=== PATIENT | male | born 1965 | race Caucasian/White ===

== ENCOUNTER 2025-03-23 04:39 | Emergency (ER) | payer BC ==
[~2025-03-23] VITALS: Ht 175.3 cm; Wt 92.3 kg
[2025-03-23 04:51] VITALS: O2SAT 99
[2025-03-23] MEDS: TETANUS, DIPHTHERIA, PERTUSSIS VAC/PF 0.5ML (>10YR OLD) IM ONE (06:22)
[2025-03-23] MEDS: LIDOCAINE HCL 1% 20ML VIAL INFIL ONE (06:23)
[2025-03-23] MEDS: ACETAMINOPHEN 325MG TABLET PO ONE (06:23)
[2025-03-23] MEDS ORDERED: IBUP-1525 MT (07:17)
[2025-03-23] MEDS ORDERED: TOPUD MT (07:17)
[2025-03-23 07:50] VITALS: BP 152/80; PULSE 82; RESP 14; TEMP 36.4; O2SAT 98
== END 2025-03-23 07:55 | disposition home or self-care (01) ==
LOC: ER 04:39
DX: S61.218A Laceration without foreign body of other finger without damage to nail, initial encounter (principal); S61.411A Laceration without foreign body of right hand, initial encounter; E78.00 Pure hypercholesterolemia, unspecified; I10 Essential (primary) hypertension; X58.XXXA Exposure to other specified factors, initial encounter; Y93.89 Activity, other specified; Y92.89 Other specified places as the place of occurrence of the external cause; Y99.9 Unspecified external cause status
CPT/HCPCS: 99283; 73120; 90715; 12001; 90471; J2003

== ENCOUNTER 2025-04-07 20:21 | Emergency (ER) | payer BC ==
[~2025-04-07] VITALS: Ht 175.3 cm; Wt 100.0 kg
[~2025-04-07 20:21] MED LIST: IBUP-1525 MT; TOPUD MT
[2025-04-07 20:31] VITALS: TEMP 36.9; O2SAT 100
[2025-04-07 21:46] VITALS: BP 207/112; PULSE 70; RESP 14; O2SAT 98
== END 2025-04-07 21:54 | disposition home or self-care (01) ==
LOC: ER 20:21
DX: S61.212D Laceration without foreign body of right middle finger without damage to nail, subsequent encounter (principal); I10 Essential (primary) hypertension; E78.00 Pure hypercholesterolemia, unspecified; X58.XXXD Exposure to other specified factors, subsequent encounter
CPT/HCPCS: 99282